=== PATIENT | male | born 1965 | race Caucasian/White ===

== ENCOUNTER 2024-11-01 12:48 | Outpatient (CLI) | payer OTHER, SELFPAY ==
[2024-11-01] MEDS: PERFLUTREN LIPID MICROSPHERES 2 ML VIAL IVP (13:51)
--- NOTE | 2024-11-01 14:00 | PC.NURSE ---
Definity given per eMAR and chemical production technician. IV was started and removed by chemical production technician.
== END 2024-11-01 12:49 | disposition home or self-care (01) ==
LOC: RAD 12:52
PROVIDERS: Visit Provider Chiropractor
DX: I51.9 Heart disease, unspecified (principal); I51.89 Other ill-defined heart diseases
CPT/HCPCS: 93306; Q9957